=== PATIENT | female | born 1940 | race Caucasian/White ===

== ENCOUNTER 2017-09-19 23:47 | Inpatient (IN) | payer MEDICARE, OTHER ==
[2017-09-20] MEDS: SOD CHLORIDE 0.9% 1,000 ML IV (00:39)
[2017-09-20] MEDS: ONDANSETRON 4 MG INJ IV ×2 (00:39→04:22)
[2017-09-20] MEDS: FAMOTIDINE 20 MG INJ IV (00:39)
[2017-09-20 00:45] LABS: ADD MAN DIFF? NO
[2017-09-20 00:51] LABS: WHITE BLOOD COUNT 8.6 10^3/ul (4.8-10.8)
[2017-09-20 00:52] LABS: BASOPHILS % 0.1 % (0.0-2.0); EOSINOPHILS % 0.1 % (0.0-7.0); HEMATOCRIT 29.2 % (37.0-47.0); HEMOGLOBIN 8.9 g/dl (12.0-16.0); LYMPHOCYTES # 1.1 10^3/ul (0.8-2.9); LYMPHOCYTES % 13.2 % (15.0-51.0); MEAN CORPUSCULAR HEMOGLOBIN 23.5 pg (29.0-33.0); MEAN CORPUSCULAR HGB CONC 30.5 g/dl (32.0-37.0); MEAN CORPUSCULAR VOLUME 77.2 fl (82.0-101.0); MEAN PLATELET VOLUME 9.9 fl (7.4-10.4); MONOCYTE # 0.6 10^3/ul (0.3-0.9); MONOCYTES % 6.9 % (0.0-11.0); NEUTROPHIL # 6.8 10^3/ul (1.6-7.5); NEUTROPHILS % 79.2 % (39.0-77.0); PLATELET COUNT 361 10^3/UL (140-415); RED BLOOD COUNT 3.78 10^6/ul (4.20-5.40); RED CELL DISTRIBUTION WIDTH 15.9 % (11.5-14.5)
[2017-09-20 01:08] LABS: ALANINE AMINOTRANSFERASE 35 IU/L (13-69); ALBUMIN 3.4 g/dl (3.3-4.9); ALBUMIN/GLOBULIN RATIO 1.13; ALKALINE PHOSPHATASE 41 IU/L (42-121); ANION GAP 16 (8-16); ASPARTATE AMINO TRANSFERASE 21 IU/L (15-46); BILIRUBIN,INDIRECT 0.3 mg/dl (0-1.1); BILIRUBIN,TOTAL 0.3 mg/dl (0.2-1.3); BLOOD UREA NITROGEN 36 mg/dl (7-20); CALCIUM 9.1 mg/dl (8.4-10.2); CARBON DIOXIDE 19 mmol/L (21-31); CHLORIDE 107 mmol/L (97-110); CREATININE 0.96 mg/dl (0.44-1.00); GLUCOSE 140 mg/dl (70-220); POTASSIUM 4.2 mmol/L (3.5-5.1); SODIUM 138 mmol/L (135-144); TOTAL PROTEIN 6.4 g/dl (6.1-8.1)
[2017-09-20 01:12] LABS: LACTIC ACID 1.2 mmol/L (0.5-2.0)
[2017-09-20 01:19] LABS: TROPONIN-I 0.013 ng/ml (0.00-0.12)
[2017-09-20 01:35] LABS: INR 0.99; PROTIME 13.2 Sec (11.9-14.9)
[2017-09-20 01:36] LABS: PARTIAL THROMBOPLASTIN TIME 30.2 Sec (25.0-35.0)
[2017-09-20 01:57] LABS: ADD UMIC YES; UR ASCORBIC ACID 40 mg/dL (NEGATIVE); UR BILIRUBIN (Dip) NEGATIVE (NEGATIVE); UR BLOOD (Dip) NEGATIVE (NEGATIVE); UR CLARITY CLEAR (CLEAR); UR COLOR YELLOW (YELLOW); UR GLUCOSE (Dip) NEGATIVE (NEGATIVE); UR KETONES (Dip) NEGATIVE (NEGATIVE); UR LEUKOCYTE ESTERASE (Dip) TRACE Leu/ul (NEGATIVE); UR NITRITE (Dip) NEGATIVE (NEGATIVE); UR RBC 4 /HPF (0-5); UR SPECIFIC GRAVITY (Dip) 1.032 (1.003-1.030); UR SQUAMOUS EPITHELIAL CELL FEW /HPF (FEW); UR TOTAL PROTEIN (Dip) NEGATIVE (NEGATIVE); UR UROBILINOGEN (Dip) NEGATIVE (NEGATIVE); UR WBC 1 /HPF (0-5)
[2017-09-20] MEDS: HALOPERIDOL 5 MG INJ IV (02:31)
[2017-09-20] MEDS: morphine 4 MG/ML VIAL IV (02:32)
[2017-09-20] MEDS ORDERED: ACETAMINOPHEN 325 MG TAB PO (04:30)
[2017-09-20 04:55] LABS: LACTIC ACID 0.9 mmol/L (0.5-2.0)
[2017-09-20] MEDS ORDERED: NACL 0.9% 3 ML SYG IV (06:30)
[2017-09-20] MEDS ORDERED: ALBUTEROL/IPRATROPIUM (NEB) 3 ML AMP HHN (06:30)
[2017-09-20] MEDS ORDERED: ONDANSETRON 4 MG INJ IV ×2 (06:30→14:30)
[2017-09-20] MEDS: DEXTROSE 5%-0.45% NACL 1,000 ML IV ×2 (07:01→16:11)
[2017-09-20] MEDS: LORAZEPAM 2 MG INJ IV ×3 (08:12→19:58)
[2017-09-20 08:14] LABS: WHITE BLOOD COUNT 5.4 10^3/ul (4.8-10.8)
[2017-09-20 08:14] LABS: ADD MAN DIFF? NO; BASOPHILS % 0.2 % (0.0-2.0); EOSINOPHILS % 0.4 % (0.0-7.0); HEMATOCRIT 27.9 % (37.0-47.0); HEMOGLOBIN 8.1 g/dl (12.0-16.0); LYMPHOCYTES # 1.5 10^3/ul (0.8-2.9); MEAN CORPUSCULAR HEMOGLOBIN 23.1 pg (29.0-33.0); MEAN CORPUSCULAR VOLUME 79.7 fl (82.0-101.0); MEAN PLATELET VOLUME 9.7 fl (7.4-10.4); MONOCYTE # 0.6 10^3/ul (0.3-0.9); NEUTROPHIL # 3.3 10^3/ul (1.6-7.5); PLATELET COUNT 279 10^3/UL (140-415); RED CELL DISTRIBUTION WIDTH 16.2 % (11.5-14.5)
[2017-09-20 08:38] LABS: IRON 21 ug/dl (35-150)
[2017-09-20 08:40] LABS: ALANINE AMINOTRANSFERASE 38 IU/L (13-69); ALBUMIN 2.9 g/dl (3.3-4.9); ALKALINE PHOSPHATASE 33 IU/L (42-121); ANION GAP 12 (8-16); ASPARTATE AMINO TRANSFERASE 24 IU/L (15-46); BILIRUBIN,INDIRECT 0.1 mg/dl (0-1.1); BILIRUBIN,TOTAL 0.1 mg/dl (0.2-1.3); BLOOD UREA NITROGEN 27 mg/dl (7-20); CALCIUM 8.3 mg/dl (8.4-10.2); CARBON DIOXIDE 20 mmol/L (21-31); CHLORIDE 111 mmol/L (97-110); CREATININE 0.82 mg/dl (0.44-1.00); GLUCOSE 120 mg/dl (70-220); PHOSPHORUS 3.4 mg/dl (2.5-4.9); POTASSIUM 4.4 mmol/L (3.5-5.1); SODIUM 139 mmol/L (135-144); TOTAL PROTEIN 5.8 g/dl (6.1-8.1)
[2017-09-20 08:47] LABS: % IRON SATURATION 6 % SAT (22-52); TOTAL IRON BINDING CAPACITY 357 ug/dl (241-421)
[2017-09-20 09:14] LABS: FERRITIN 16.8 ng/ml (11.1-264.0)
[2017-09-20] MEDS: PANTOPRAZOLE IV 80 MG in SOD CHLORIDE 0.9% 100 ML IV ×2 (09:49→22:06)
[2017-09-20 13:07] LABS: HEMATOCRIT 26.2 % (37.0-47.0); HEMOGLOBIN 8.1 g/dl (12.0-16.0)
[2017-09-20] MEDS ORDERED: LIDOCAINE 2% (SDV) 5 ML INJ (14:14)
[2017-09-20] MEDS ORDERED: PROPOFOL 20 ML (14:14)
[2017-09-20] MEDS ORDERED: hydrALAzine 20 MG INJ IV (14:30)
[2017-09-20] MEDS ORDERED: LABETALOL HCL 20MG INJ IV (14:30)
[2017-09-20] MEDS ORDERED: HYDROmorphONE (0.2 MG/ML) 10ML SYG IV (14:30)
[2017-09-20 19:03] LABS: HEMATOCRIT 26.6 % (37.0-47.0); HEMOGLOBIN 7.8 g/dl (12.0-16.0)
[2017-09-20] MEDS ORDERED: PERPHENAZINE 4 MG TAB PO ×2 (21:00)
[2017-09-20] MEDS: PERPHENAZINE 2 MG TAB PO (22:05)
[2017-09-20] MEDS: GABAPENTIN 300 MG CAP PO (22:06)
[2017-09-21] MEDS: PANTOPRAZOLE IV 80 MG in SOD CHLORIDE 0.9% 100 ML IV ×2 (05:00→11:53)
[2017-09-21] MEDS ORDERED: PANTOPRAZOLE 40 MG INJ IV (06:00)
[2017-09-21] MEDS: morphine 2 MG INJ IV ×2 (06:25→17:11)
[2017-09-21] MEDS: GABAPENTIN 300 MG CAP PO ×3 (08:59→20:38)
[2017-09-21] MEDS: PERPHENAZINE 2 MG TAB PO ×3 (08:59→20:38)
[2017-09-21 09:05] LABS: ADD MAN DIFF? NO
[2017-09-21 09:08] LABS: WHITE BLOOD COUNT 5.4 10^3/ul (4.8-10.8)
[2017-09-21 09:08] LABS: BASOPHILS % 0.2 % (0.0-2.0); EOSINOPHILS # 0.1 10^3/ul (0.0-0.5); EOSINOPHILS % 1.1 % (0.0-7.0); HEMATOCRIT 24.2 % (37.0-47.0); HEMOGLOBIN 7.3 g/dl (12.0-16.0); LYMPHOCYTES # 1.7 10^3/ul (0.8-2.9); LYMPHOCYTES % 31.1 % (15.0-51.0); MEAN CORPUSCULAR HEMOGLOBIN 23.3 pg (29.0-33.0); MEAN CORPUSCULAR HGB CONC 30.2 g/dl (32.0-37.0); MEAN CORPUSCULAR VOLUME 77.3 fl (82.0-101.0); MEAN PLATELET VOLUME 9.4 fl (7.4-10.4); MONOCYTE # 0.5 10^3/ul (0.3-0.9); MONOCYTES % 9.1 % (0.0-11.0); NEUTROPHIL # 3.2 10^3/ul (1.6-7.5); NEUTROPHILS % 58.3 % (39.0-77.0); PLATELET COUNT 277 10^3/UL (140-415); RED BLOOD COUNT 3.13 10^6/ul (4.20-5.40); RED CELL DISTRIBUTION WIDTH 16.4 % (11.5-14.5)
[2017-09-21 09:33] LABS: ANION GAP 11 (8-16); BLOOD UREA NITROGEN 14 mg/dl (7-20); CALCIUM 9.2 mg/dl (8.4-10.2); CARBON DIOXIDE 23 mmol/L (21-31); CHLORIDE 110 mmol/L (97-110); CREATININE 0.84 mg/dl (0.44-1.00); GLUCOSE 94 mg/dl (70-220); PHOSPHORUS 3.3 mg/dl (2.5-4.9); POTASSIUM 4.1 mmol/L (3.5-5.1); SODIUM 140 mmol/L (135-144)
[2017-09-21] MEDS: LORAZEPAM 2 MG INJ IV (18:09)
[2017-09-21] MEDS: SOD CHLORIDE 0.9% 1,000 ML IV (20:04)
[2017-09-22] MEDS: PANTOPRAZOLE IV 80 MG in SOD CHLORIDE 0.9% 100 ML IV ×3 (02:05→21:41)
[2017-09-22] MEDS: SOD CHLORIDE 0.9% 1,000 ML IV ×2 (05:00→15:15)
[2017-09-22 07:21] LABS: ADD MAN DIFF? NO
[2017-09-22 07:25] LABS: BASOPHILS % 0.2 % (0.0-2.0); EOSINOPHILS # 0.2 10^3/ul (0.0-0.5); EOSINOPHILS % 3.4 % (0.0-7.0); HEMATOCRIT 27.2 % (37.0-47.0); LYMPHOCYTES # 1.9 10^3/ul (0.8-2.9); LYMPHOCYTES % 30.9 % (15.0-51.0); MEAN CORPUSCULAR HEMOGLOBIN 23.2 pg (29.0-33.0); MEAN CORPUSCULAR HGB CONC 29.4 g/dl (32.0-37.0); MEAN CORPUSCULAR VOLUME 78.8 fl (82.0-101.0); MEAN PLATELET VOLUME 9.4 fl (7.4-10.4); MONOCYTE # 0.5 10^3/ul (0.3-0.9); MONOCYTES % 8.5 % (0.0-11.0); NEUTROPHIL # 3.5 10^3/ul (1.6-7.5); NEUTROPHILS % 56.7 % (39.0-77.0); PLATELET COUNT 288 10^3/UL (140-415); RED BLOOD COUNT 3.45 10^6/ul (4.20-5.40); RED CELL DISTRIBUTION WIDTH 16.2 % (11.5-14.5)
[2017-09-22 07:25] LABS: WHITE BLOOD COUNT 6.2 10^3/ul (4.8-10.8)
[2017-09-22] MEDS: PERPHENAZINE 2 MG TAB PO ×3 (08:19→21:41)
[2017-09-22] MEDS: GABAPENTIN 300 MG CAP PO ×3 (08:19→21:42)
[2017-09-22 10:16] LABS: ALANINE AMINOTRANSFERASE 35 IU/L (13-69); ALBUMIN 3.2 g/dl (3.3-4.9); ALBUMIN/GLOBULIN RATIO 1.14; ALKALINE PHOSPHATASE 36 IU/L (42-121); ANION GAP 10 (8-16); ASPARTATE AMINO TRANSFERASE 21 IU/L (15-46); BILIRUBIN,INDIRECT 0.1 mg/dl (0-1.1); BILIRUBIN,TOTAL 0.1 mg/dl (0.2-1.3); BLOOD UREA NITROGEN 12 mg/dl (7-20); CALCIUM 9.3 mg/dl (8.4-10.2); CARBON DIOXIDE 25 mmol/L (21-31); CHLORIDE 108 mmol/L (97-110); CREATININE 0.81 mg/dl (0.44-1.00); GLUCOSE 105 mg/dl (70-220); MAGNESIUM 1.9 mg/dl (1.7-2.5); PHOSPHORUS 3.7 mg/dl (2.5-4.9); POTASSIUM 4.1 mmol/L (3.5-5.1); SODIUM 139 mmol/L (135-144)
[2017-09-22] MEDS: LORAZEPAM 2 MG INJ IV (11:49)
[2017-09-22] MEDS: DOCUSATE SODIUM 100 MG CAP PO ×2 (12:38→21:41)
[2017-09-22] MEDS: BISACODYL (EC) 5 MG TAB PO (12:38)
[2017-09-22] MEDS: HALOPERIDOL 5 MG INJ IM ×3 (13:43→22:00)
[2017-09-22] MEDS: NA PHOSPHATE/BIPHOS 133 ML ENEMA PR (14:54)
[2017-09-22] MEDS: LORAZEPAM 1 MG TAB PO (16:11)
[2017-09-23] MEDS: SOD CHLORIDE 0.9% 1,000 ML IV ×3 (00:44→21:00)
[2017-09-23] MEDS ORDERED: VANCOMYCIN IV PER PHARMACY XX (03:00)
[2017-09-23] MEDS: VANCOMYCIN 1.5 GM in DEXTROSE 5% 500 ML IVPB (05:53)
[2017-09-23] MEDS: HALOPERIDOL 5 MG INJ IM ×4 (06:42→21:15)
[2017-09-23] MEDS: PANTOPRAZOLE IV 80 MG in SOD CHLORIDE 0.9% 100 ML IV ×3 (07:00→18:18)
[2017-09-23] MEDS: DOCUSATE SODIUM 100 MG CAP PO ×2 (08:46→21:14)
[2017-09-23] MEDS: PERPHENAZINE 2 MG TAB PO ×3 (08:47→21:14)
[2017-09-23] MEDS: GABAPENTIN 300 MG CAP PO ×3 (08:47→21:14)
[2017-09-23] MEDS: LORAZEPAM 1 MG TAB PO (10:40)
[2017-09-23 12:16] LABS: ADD MAN DIFF? NO
[2017-09-23 12:20] LABS: WHITE BLOOD COUNT 7.2 10^3/ul (4.8-10.8)
[2017-09-23 12:20] LABS: BASOPHILS % 0.1 % (0.0-2.0); EOSINOPHILS # 0.1 10^3/ul (0.0-0.5); EOSINOPHILS % 1.7 % (0.0-7.0); HEMATOCRIT 25.1 % (37.0-47.0); HEMOGLOBIN 7.5 g/dl (12.0-16.0); LYMPHOCYTES # 1.7 10^3/ul (0.8-2.9); LYMPHOCYTES % 24.2 % (15.0-51.0); MEAN CORPUSCULAR HEMOGLOBIN 23.2 pg (29.0-33.0); MEAN CORPUSCULAR HGB CONC 29.9 g/dl (32.0-37.0); MEAN CORPUSCULAR VOLUME 77.7 fl (82.0-101.0); MEAN PLATELET VOLUME 9.4 fl (7.4-10.4); MONOCYTE # 0.7 10^3/ul (0.3-0.9); MONOCYTES % 9.9 % (0.0-11.0); NEUTROPHIL # 4.6 10^3/ul (1.6-7.5); NEUTROPHILS % 63.8 % (39.0-77.0); PLATELET COUNT 290 10^3/UL (140-415); RED BLOOD COUNT 3.23 10^6/ul (4.20-5.40); RED CELL DISTRIBUTION WIDTH 16.1 % (11.5-14.5)
[2017-09-23 12:27] LABS: ALANINE AMINOTRANSFERASE 35 IU/L (13-69); ALBUMIN 3.1 g/dl (3.3-4.9); ALBUMIN/GLOBULIN RATIO 1.29; ALKALINE PHOSPHATASE 38 IU/L (42-121); ANION GAP 12 (8-16); ASPARTATE AMINO TRANSFERASE 28 IU/L (15-46); BILIRUBIN,INDIRECT 0.1 mg/dl (0-1.1); BILIRUBIN,TOTAL 0.1 mg/dl (0.2-1.3); BLOOD UREA NITROGEN 9 mg/dl (7-20); CALCIUM 8.6 mg/dl (8.4-10.2); CARBON DIOXIDE 24 mmol/L (21-31); CHLORIDE 109 mmol/L (97-110); CREATININE 0.81 mg/dl (0.44-1.00); GLUCOSE 133 mg/dl (70-220); MAGNESIUM 1.8 mg/dl (1.7-2.5); PHOSPHORUS 4.2 mg/dl (2.5-4.9); POTASSIUM 3.3 mmol/L (3.5-5.1); SODIUM 142 mmol/L (135-144); TOTAL PROTEIN 5.5 g/dl (6.1-8.1)
[2017-09-23] MEDS: LIDOCAINE 1% (MPF) 5 ML VIAL SC (17:35)
[2017-09-23] MEDS: VANCOMYCIN 500MG/NS (PMX) 100 ML IVPB (18:21)
[2017-09-23] MEDS: MAGNESIUM SULFATE 1 GM/D5W 100 ML IVPB (20:00)
[2017-09-23] MEDS: POTASSIUM CHLORIDE 50 ML IVPB ×4 (21:00→23:46)
[2017-09-23] MEDS ORDERED: VANCOMYCIN 500MG/NS (PMX) 100 ML IVPB (22:00)
[2017-09-24] MEDS ORDERED: VANCOMYCIN 1 GM in SODIUM CHLORIDE 0.45 % 250 ML IVPB (03:00)
[2017-09-24] MEDS: PANTOPRAZOLE IV 80 MG in SOD CHLORIDE 0.9% 100 ML IV ×3 (05:16→23:00)
[2017-09-24] MEDS: VANCOMYCIN 500MG/NS (PMX) 100 ML IVPB (05:16)
[2017-09-24] MEDS: HALOPERIDOL 5 MG INJ IM ×3 (05:16→22:05)
[2017-09-24] MEDS: SOD CHLORIDE 0.9% 1,000 ML IV (05:16)
[2017-09-24] MEDS: LORAZEPAM 1 MG TAB PO ×2 (08:53→22:36)
[2017-09-24] MEDS: DOCUSATE SODIUM 100 MG CAP PO ×2 (08:53→22:04)
[2017-09-24] MEDS: GABAPENTIN 300 MG CAP PO ×3 (08:53→22:04)
[2017-09-24] MEDS: PERPHENAZINE 2 MG TAB PO ×3 (08:53→22:04)
[2017-09-24] MEDS: SOD CHLORIDE 0.9% 250 ML IV* (11:54)
[2017-09-24] MEDS: POTASSIUM CHLORIDE (SR) 20 MEQ TAB PO (13:09)
[2017-09-24] MEDS: SOD CHLORIDE 0.45% 1,000 ML IV (13:09)
[2017-09-24 14:28] LABS: IMMEDIATE SPIN CROSSMATCH 1 2
[2017-09-24 17:53] LABS: VANCOMYCIN,TROUGH 6.9 ug/ml (10.0-20.0)
[2017-09-24] MEDS ORDERED: LIDOCAINE 1% (MPF) 5 ML VIAL SC (21:00)
[2017-09-24] MEDS: VANCOMYCIN 1 GM in SODIUM CHLORIDE 0.45 % 250 ML IVPB (22:05)
[2017-09-25] MEDS: SOD CHLORIDE 0.45% 1,000 ML IV ×3 (01:20→21:37)
[2017-09-25 06:21] LABS: ADD MAN DIFF? NO
[2017-09-25 06:37] LABS: WHITE BLOOD COUNT 8.4 10^3/ul (4.8-10.8)
[2017-09-25 06:37] LABS: BASOPHILS % 0.5 % (0.0-2.0); EOSINOPHILS # 0.3 10^3/ul (0.0-0.5); EOSINOPHILS % 3.1 % (0.0-7.0); HEMOGLOBIN 11.6 g/dl (12.0-16.0); LYMPHOCYTES # 2.4 10^3/ul (0.8-2.9); LYMPHOCYTES % 27.8 % (15.0-51.0); MEAN CORPUSCULAR HEMOGLOBIN 25.8 pg (29.0-33.0); MEAN CORPUSCULAR HGB CONC 32.2 g/dl (32.0-37.0); MEAN CORPUSCULAR VOLUME 80.2 fl (82.0-101.0); MEAN PLATELET VOLUME 10.3 fl (7.4-10.4); MONOCYTE # 0.9 10^3/ul (0.3-0.9); NEUTROPHIL # 4.8 10^3/ul (1.6-7.5); NEUTROPHILS % 57.2 % (39.0-77.0); PLATELET COUNT 232 10^3/UL (140-415); RED BLOOD COUNT 4.49 10^6/ul (4.20-5.40); RED CELL DISTRIBUTION WIDTH 15.4 % (11.5-14.5)
[2017-09-25] MEDS: HALOPERIDOL 5 MG INJ IM ×3 (06:42→21:40)
[2017-09-25 06:58] LABS: ANION GAP 14 (8-16); BLOOD UREA NITROGEN 4 mg/dl (7-20); CALCIUM 9.5 mg/dl (8.4-10.2); CARBON DIOXIDE 25 mmol/L (21-31); CHLORIDE 109 mmol/L (97-110); CREATININE 0.76 mg/dl (0.44-1.00); GLUCOSE 92 mg/dl (70-220); SODIUM 144 mmol/L (135-144)
[2017-09-25] MEDS: LIDOCAINE 1% (MPF) 5 ML VIAL SC (08:00)
[2017-09-25] MEDS: VANCOMYCIN 1 GM in SODIUM CHLORIDE 0.45 % 250 ML IVPB ×2 (09:24→21:50)
[2017-09-25] MEDS: DOCUSATE SODIUM 100 MG CAP PO ×2 (09:25→21:39)
[2017-09-25] MEDS: GABAPENTIN 300 MG CAP PO ×3 (09:25→21:39)
[2017-09-25] MEDS: PERPHENAZINE 2 MG TAB PO ×3 (09:26→21:39)
[2017-09-25] MEDS: PANTOPRAZOLE IV 80 MG in SOD CHLORIDE 0.9% 100 ML IV (14:31)
[2017-09-25] MEDS: ALTEPLASE (CATHFLO) 2 MG INJ CATHETER (15:47)
[2017-09-26] MEDS: PANTOPRAZOLE (EC) 40 MG TAB PO ×2 (05:44→18:33)
[2017-09-26] MEDS: HALOPERIDOL 5 MG INJ IM ×3 (05:44→21:53)
[2017-09-26 06:19] LABS: ADD MAN DIFF? NO
[2017-09-26 07:13] LABS: ANION GAP 12 (8-16); BLOOD UREA NITROGEN 6 mg/dl (7-20); CALCIUM 9.2 mg/dl (8.4-10.2); CARBON DIOXIDE 28 mmol/L (21-31); CHLORIDE 107 mmol/L (97-110); CREATININE 0.77 mg/dl (0.44-1.00); GLUCOSE 111 mg/dl (70-220); POTASSIUM 3.7 mmol/L (3.5-5.1); SODIUM 143 mmol/L (135-144)
[2017-09-26 07:38] LABS: WHITE BLOOD COUNT 8.5 10^3/ul (4.8-10.8)
[2017-09-26 07:38] LABS: BASOPHILS % 0.5 % (0.0-2.0); EOSINOPHILS # 0.3 10^3/ul (0.0-0.5); EOSINOPHILS % 3.3 % (0.0-7.0); HEMATOCRIT 33.8 % (37.0-47.0); HEMOGLOBIN 10.7 g/dl (12.0-16.0); LYMPHOCYTES # 1.9 10^3/ul (0.8-2.9); LYMPHOCYTES % 22.4 % (15.0-51.0); MEAN CORPUSCULAR HEMOGLOBIN 25.4 pg (29.0-33.0); MEAN CORPUSCULAR HGB CONC 31.7 g/dl (32.0-37.0); MEAN CORPUSCULAR VOLUME 80.3 fl (82.0-101.0); MONOCYTE # 0.8 10^3/ul (0.3-0.9); MONOCYTES % 9.9 % (0.0-11.0); NEUTROPHIL # 5.4 10^3/ul (1.6-7.5); NEUTROPHILS % 63.4 % (39.0-77.0); RED BLOOD COUNT 4.21 10^6/ul (4.20-5.40)
[2017-09-26 07:57] LABS: PLATELET COUNT 120 10^3/UL (140-415)
[2017-09-26] MEDS: DOCUSATE SODIUM 100 MG CAP PO ×2 (09:55→21:51)
[2017-09-26] MEDS: GABAPENTIN 300 MG CAP PO ×3 (09:55→21:51)
[2017-09-26] MEDS: PERPHENAZINE 2 MG TAB PO ×3 (09:56→21:48)
[2017-09-26] MEDS: BISACODYL (EC) 5 MG TAB PO (10:01)
[2017-09-26] MEDS: VANCOMYCIN 1 GM in SODIUM CHLORIDE 0.45 % 250 ML IVPB (10:06)
[2017-09-26] MEDS: ARTIFICIAL TEARS 15 ML OPH BOTH EYES ×2 (18:32→21:46)
[2017-09-26] MEDS: ALBUMIN HUMAN 25% 100 ML IV (18:32)
[2017-09-26] MEDS: SOD CHLORIDE 0.45% 1,000 ML IV (18:33)
[2017-09-26] MEDS: FUROSEMIDE 20 MG INJ IV (21:44)
[2017-09-26] MEDS: VANCOMYCIN 750 MG in DEXTROSE 5% 150 ML IVPB (21:45)
[2017-09-26] MEDS: FAMOTIDINE 20 MG TAB PO (21:51)
[2017-09-27 01:07] LABS: ADD UMIC YES; UR ASCORBIC ACID NEGATIVE (NEGATIVE); UR BACTERIA FEW /HPF (NONE SEEN); UR BILIRUBIN (Dip) NEGATIVE (NEGATIVE); UR BLOOD (Dip) NEGATIVE (NEGATIVE); UR CLARITY CLEAR (CLEAR); UR COLOR COLORLESS (YELLOW); UR GLUCOSE (Dip) NEGATIVE (NEGATIVE); UR KETONES (Dip) NEGATIVE (NEGATIVE); UR LEUKOCYTE ESTERASE (Dip) 3+ Leu/ul (NEGATIVE); UR NITRITE (Dip) NEGATIVE (NEGATIVE); UR RBC 2 /HPF (0-5); UR SPECIFIC GRAVITY (Dip) 1.004 (1.003-1.030); UR TOTAL PROTEIN (Dip) NEGATIVE (NEGATIVE); UR UROBILINOGEN (Dip) NEGATIVE (NEGATIVE); UR WBC 31 /HPF (0-5)
[2017-09-27] MEDS: CEFTRIAXONE 1 GM/50 ML (PMX) 50 ML IVPB (02:51)
[2017-09-27 06:19] LABS: ADD MAN DIFF? NO
[2017-09-27] MEDS: HALOPERIDOL 5 MG INJ IM ×2 (06:24→13:04)
[2017-09-27] MEDS: PANTOPRAZOLE (EC) 40 MG TAB PO (06:24)
[2017-09-27 06:37] LABS: WHITE BLOOD COUNT 7.8 10^3/ul (4.8-10.8)
[2017-09-27 06:37] LABS: BASOPHIL # 0.1 10^3/ul (0.0-0.1); BASOPHILS % 0.6 % (0.0-2.0); EOSINOPHILS # 0.3 10^3/ul (0.0-0.5); HEMATOCRIT 34.5 % (37.0-47.0); HEMOGLOBIN 10.7 g/dl (12.0-16.0); LYMPHOCYTES # 2.3 10^3/ul (0.8-2.9); LYMPHOCYTES % 29.3 % (15.0-51.0); MEAN CORPUSCULAR HEMOGLOBIN 25.1 pg (29.0-33.0); MONOCYTES % 12.6 % (0.0-11.0); NEUTROPHIL # 4.1 10^3/ul (1.6-7.5); NEUTROPHILS % 53.1 % (39.0-77.0); PLATELET COUNT 116 10^3/UL (140-415); RED BLOOD COUNT 4.26 10^6/ul (4.20-5.40); RED CELL DISTRIBUTION WIDTH 16.6 % (11.5-14.5)
[2017-09-27] MEDS: NA PHOSPHATE/BIPHOS 133 ML ENEMA PR (06:54)
[2017-09-27 06:57] LABS: POSITIVE DIFF @See below
[2017-09-27 07:42] LABS: ANION GAP 15 (8-16); BLOOD UREA NITROGEN 7 mg/dl (7-20); CALCIUM 9.5 mg/dl (8.4-10.2); CARBON DIOXIDE 28 mmol/L (21-31); CHLORIDE 106 mmol/L (97-110); CREATININE 0.86 mg/dl (0.44-1.00); GLUCOSE 102 mg/dl (70-220); POTASSIUM 3.2 mmol/L (3.5-5.1); SODIUM 146 mmol/L (135-144)
[2017-09-27] MEDS: DOCUSATE SODIUM 100 MG CAP PO (09:01)
[2017-09-27] MEDS: GABAPENTIN 300 MG CAP PO ×2 (09:01→13:03)
[2017-09-27] MEDS: FAMOTIDINE 20 MG TAB PO (09:01)
[2017-09-27] MEDS: PERPHENAZINE 2 MG TAB PO ×2 (09:01→13:03)
[2017-09-27] MEDS: ARTIFICIAL TEARS 15 ML OPH BOTH EYES ×2 (09:02→13:04)
[2017-09-27] MEDS: VANCOMYCIN 750 MG in DEXTROSE 5% 150 ML IVPB (10:41)
[2017-09-28] MEDS ORDERED: LEVOFLOXACIN 500 MG TAB PO (06:00)
[2017-09-28] MEDS ORDERED: PANTOPRAZOLE (EC) 40 MG TAB PO (09:00)
== END 2017-09-27 16:10 | DRG 378 ==
LOC: E/R 23:47 → MS2 09-24 13:14 → TEL 09-20 04:11
PROVIDERS: Specialist
PROC: 0DB68ZX Excision of Stomach, Via Natural or Artificial Opening Endoscopic, Diagnostic (ICD-10-PCS; principal; 2017-09-20 14:15)
PROC: 0W3P8ZZ Control Bleeding in Gastrointestinal Tract, Via Natural or Artificial Opening Endoscopic (ICD-10-PCS; 2017-09-20 14:15)
PROC: 02HV33Z Insertion of Infusion Device into Superior Vena Cava, Percutaneous Approach (ICD-10-PCS; 2017-09-20 14:15)
PROC: 30233N1 Transfusion of Nonautologous Red Blood Cells into Peripheral Vein, Percutaneous Approach (ICD-10-PCS; 2017-09-20 14:15)
DX: K25.4 Chronic or unspecified gastric ulcer with hemorrhage (principal); R78.81 Bacteremia; E86.0 Dehydration; F03.90 Unspecified dementia, unspecified severity, without behavioral disturbance, psychotic disturbance, mood disturbance, and anxiety; F05 Delirium due to known physiological condition; D62 Acute posthemorrhagic anemia; K44.9 Diaphragmatic hernia without obstruction or gangrene; K21.9 Gastro-esophageal reflux disease without esophagitis; E78.5 Hyperlipidemia, unspecified; F41.9 Anxiety disorder, unspecified
CPT/HCPCS: 36415; 36430; 36569; 71010; 74000; 76937; 80048; 80053; 80202; 81001; 82728; 83540; 83605; 83735; 84100; 84443; 84484; 85014; 85018; 85025; 85610; 85730; 86850; 86900; 86901; 86920; 87040; 87086; 87400; 88305; 88312; 93005; 93971; 96374; 96375; 96376; 97162; 99285-25; J1940

== ENCOUNTER 2018-02-06 23:53 | Inpatient (IN) | payer MEDICARE, OTHER ==
[2018-02-07] MEDS: LORAZEPAM 2 MG INJ IV ×5 (00:16→21:23)
[2018-02-07] MEDS: LEVETIRACETAM 1000 MG (PMX) 100 ML IVPB (00:20)
[2018-02-07] MEDS: SOD CHLORIDE 0.9% 1,000 ML IV (00:25)
[2018-02-07 00:38] LABS: ADD MAN DIFF? NO
[2018-02-07 00:44] LABS: BASOPHIL # 0.1 10^3/ul (0.0-0.1); BASOPHILS % 0.7 % (0.0-2.0); EOSINOPHILS # 0.2 10^3/ul (0.0-0.5); EOSINOPHILS % 1.1 % (0.0-7.0); HEMATOCRIT 42.9 % (37.0-47.0); HEMOGLOBIN 13.2 g/dl (12.0-16.0); LYMPHOCYTES # 3.6 10^3/ul (0.8-2.9); LYMPHOCYTES % 23.7 % (15.0-51.0); MEAN CORPUSCULAR HEMOGLOBIN 27.8 pg (29.0-33.0); MEAN CORPUSCULAR HGB CONC 30.8 g/dl (32.0-37.0); MEAN CORPUSCULAR VOLUME 90.5 fl (82.0-101.0); MEAN PLATELET VOLUME 9.6 fl (7.4-10.4); MONOCYTE # 0.7 10^3/ul (0.3-0.9); MONOCYTES % 4.7 % (0.0-11.0); NEUTROPHIL # 10.3 10^3/ul (1.6-7.5); NEUTROPHILS % 68.5 % (39.0-77.0); PLATELET COUNT 368 10^3/UL (140-415); RED BLOOD COUNT 4.74 10^6/ul (4.20-5.40); RED CELL DISTRIBUTION WIDTH 14.3 % (11.5-14.5)
[2018-02-07 00:44] LABS: WHITE BLOOD COUNT 15.1 10^3/ul (4.8-10.8)
[2018-02-07 01:01] LABS: INR 1.04; PROTIME 13.7 Sec (11.9-14.9); PT RATIO 1.1
[2018-02-07 01:02] LABS: ALANINE AMINOTRANSFERASE 20 IU/L (13-69); ALBUMIN 3.8 g/dl (3.3-4.9); ALBUMIN/GLOBULIN RATIO 1.46; ALKALINE PHOSPHATASE 53 IU/L (42-121); ANION GAP 24 (8-16); ASPARTATE AMINO TRANSFERASE 22 IU/L (15-46); BILIRUBIN,INDIRECT 0.1 mg/dl (0-1.1); BILIRUBIN,TOTAL 0.1 mg/dl (0.2-1.3); BLOOD UREA NITROGEN 12 mg/dl (7-20); CALCIUM 9.3 mg/dl (8.4-10.2); CARBON DIOXIDE 16 mmol/L (21-31); CHLORIDE 107 mmol/L (97-110); GLUCOSE 267 mg/dl (70-220); PARTIAL THROMBOPLASTIN TIME 25.8 Sec (25.0-35.0); POTASSIUM 3.8 mmol/L (3.5-5.1); SODIUM 143 mmol/L (135-144); TOTAL PROTEIN 6.4 g/dl (6.1-8.1)
[2018-02-07 01:03] LABS: LACTIC ACID 11.2 mmol/L (0.5-2.0)
[2018-02-07 01:13] LABS: TROPONIN-I 0.026 ng/ml (0.00-0.12)
[2018-02-07 02:04] LABS: URINE PH (Dip) POC 6.5 (5.0-8.5)
[2018-02-07 02:04] LABS: URINE BLOOD (Dip) POC Trace-intact (NEGATIVE); URINE GLUCOSE (Dip) POC Negative (NEGATIVE); URINE KETONES (Dip) POC Trace (NEGATIVE); URINE LEUKOCYTE EST (Dip) POC Negative (NEGATIVE); URINE NITRITE (Dip) POC Negative (NEGATIVE); URINE TOTAL PROTEIN POC 2+ (NEGATIVE)
[2018-02-07 03:33] LABS: ADD UMIC YES; UR ASCORBIC ACID 20 mg/dL (NEGATIVE); UR BILIRUBIN (Dip) NEGATIVE (NEGATIVE); UR BLOOD (Dip) NEGATIVE (NEGATIVE); UR CLARITY CLEAR (CLEAR); UR COLOR YELLOW (YELLOW); UR GLUCOSE (Dip) NEGATIVE (NEGATIVE); UR KETONES (Dip) TRACE mg/dL (NEGATIVE); UR LEUKOCYTE ESTERASE (Dip) NEGATIVE Leu/ul (NEGATIVE); UR NITRITE (Dip) NEGATIVE (NEGATIVE); UR RBC 0 /HPF (0-5); UR SPECIFIC GRAVITY (Dip) 1.013 (1.003-1.030); UR TOTAL PROTEIN (Dip) 1+ mg/dl (NEGATIVE); UR UROBILINOGEN (Dip) NEGATIVE (NEGATIVE); UR WBC 1 /HPF (0-5)
[2018-02-07 03:49] LABS: LACTIC ACID 3.5 mmol/L (0.5-2.0)
[2018-02-07] MEDS ORDERED: ONDANSETRON 4 MG INJ IV (06:00)
[2018-02-07] MEDS ORDERED: BISACODYL (EC) 5 MG TAB PO (06:00)
[2018-02-07] MEDS ORDERED: NACL 0.9% 3 ML SYG IV (06:00)
[2018-02-07] MEDS ORDERED: ALBUTEROL/IPRATROPIUM (NEB) 3 ML AMP HHN (06:00)
[2018-02-07] MEDS: PANTOPRAZOLE (EC) 40 MG TAB PO ×2 (06:00→10:09)
[2018-02-07] MEDS: AL HYDROX/MG HYDROX/SIMETH 30 ML CUP PO ×5 (06:00→22:00)
[2018-02-07 06:38] LABS: ADD MAN DIFF? NO
[2018-02-07 06:47] LABS: BASOPHILS % 0.3 % (0.0-2.0); EOSINOPHILS % 0.1 % (0.0-7.0); HEMATOCRIT 35.5 % (37.0-47.0); HEMOGLOBIN 11.5 g/dl (12.0-16.0); LYMPHOCYTES # 2.2 10^3/ul (0.8-2.9); MEAN CORPUSCULAR HEMOGLOBIN 28.2 pg (29.0-33.0); MEAN CORPUSCULAR HGB CONC 32.4 g/dl (32.0-37.0); MEAN PLATELET VOLUME 9.8 fl (7.4-10.4); MONOCYTE # 0.7 10^3/ul (0.3-0.9); MONOCYTES % 6.7 % (0.0-11.0); NEUTROPHIL # 7.5 10^3/ul (1.6-7.5); NEUTROPHILS % 71.4 % (39.0-77.0); RED BLOOD COUNT 4.08 10^6/ul (4.20-5.40); RED CELL DISTRIBUTION WIDTH 14.4 % (11.5-14.5)
[2018-02-07 06:47] LABS: WHITE BLOOD COUNT 10.5 10^3/ul (4.8-10.8)
[2018-02-07] MEDS: morphine 2 MG INJ IV (06:52)
[2018-02-07 07:00] LABS: PLATELET COUNT 275 10^3/UL (140-415); POSITIVE DIFF @See below
[2018-02-07 07:19] LABS: HEMOGLOBIN A1C 5.5 % (0-5.9)
[2018-02-07 07:25] LABS: ALANINE AMINOTRANSFERASE 20 IU/L (13-69); ALBUMIN 3.2 g/dl (3.3-4.9); ALBUMIN/GLOBULIN RATIO 1.23; ALKALINE PHOSPHATASE 41 IU/L (42-121); ANION GAP 8 (8-16); ASPARTATE AMINO TRANSFERASE 20 IU/L (15-46); BILIRUBIN,INDIRECT 0.1 mg/dl (0-1.1); BILIRUBIN,TOTAL 0.1 mg/dl (0.2-1.3); BLOOD UREA NITROGEN 13 mg/dl (7-20); CARBON DIOXIDE 26 mmol/L (21-31); CHLORIDE 112 mmol/L (97-110); CREATININE 0.73 mg/dl (0.44-1.00); GLUCOSE 93 mg/dl (70-220); POTASSIUM 4.1 mmol/L (3.5-5.1); SODIUM 142 mmol/L (135-144); TOTAL PROTEIN 5.8 g/dl (6.1-8.1)
[2018-02-07] MEDS ORDERED: PERPHENAZINE 4 MG TAB PO (07:30)
[2018-02-07] MEDS: PERPHENAZINE 2 MG TAB PO ×2 (07:43→21:00)
[2018-02-07] MEDS ORDERED: LORAZEPAM 2 MG INJ IV (09:00)
[2018-02-07] MEDS: SOD CHLORIDE 0.45% 1,000 ML IV (10:09)
[2018-02-07] MEDS: LEVOFLOXACIN 500MG/D5W (PMX) 100 ML IVPB (10:09)
[2018-02-07] MEDS: LEVETIRACETAM 500 MG (PMX) 100 ML IVPB (10:18)
[2018-02-07] MEDS: SENNA TAB PO (10:18)
[2018-02-07] MEDS: GABAPENTIN 300 MG CAP PO ×3 (10:18→21:00)
[2018-02-07] MEDS: VITAMIN B COMPLEX/VIT C CAP PO ×2 (10:19→21:00)
[2018-02-07] MEDS: CHOLECALCIFEROL 1,000 UNIT TAB PO (10:19)
[2018-02-07] MEDS: LORAZEPAM 1 MG TAB PO (13:55)
[2018-02-07] MEDS: MAGNESIUM HYDROXIDE 30ML CUP PO (21:00)
[2018-02-08] MEDS: LEVETIRACETAM 500 MG (PMX) 100 ML IVPB ×3 (01:01→20:00)
[2018-02-08] MEDS: AL HYDROX/MG HYDROX/SIMETH 30 ML CUP PO ×6 (02:00→22:32)
[2018-02-08] MEDS: morphine 2 MG INJ IV ×2 (04:12→23:07)
[2018-02-08] MEDS: SOD CHLORIDE 0.45% 1,000 ML IV (06:03)
[2018-02-08 06:59] LABS: ADD MAN DIFF? NO
[2018-02-08 07:01] LABS: BASOPHIL # 0.1 10^3/ul (0.0-0.1); BASOPHILS % 0.9 % (0.0-2.0); EOSINOPHILS # 0.1 10^3/ul (0.0-0.5); EOSINOPHILS % 1.9 % (0.0-7.0); HEMATOCRIT 37.1 % (37.0-47.0); HEMOGLOBIN 11.7 g/dl (12.0-16.0); LYMPHOCYTES # 2.9 10^3/ul (0.8-2.9); LYMPHOCYTES % 41.3 % (15.0-51.0); MEAN CORPUSCULAR HEMOGLOBIN 27.7 pg (29.0-33.0); MEAN CORPUSCULAR HGB CONC 31.5 g/dl (32.0-37.0); MEAN CORPUSCULAR VOLUME 87.9 fl (82.0-101.0); MEAN PLATELET VOLUME 9.5 fl (7.4-10.4); MONOCYTE # 0.6 10^3/ul (0.3-0.9); MONOCYTES % 9.1 % (0.0-11.0); NEUTROPHIL # 3.2 10^3/ul (1.6-7.5); NEUTROPHILS % 46.5 % (39.0-77.0); PLATELET COUNT 230 10^3/UL (140-415); RED BLOOD COUNT 4.22 10^6/ul (4.20-5.40); RED CELL DISTRIBUTION WIDTH 14.4 % (11.5-14.5)
[2018-02-08 07:01] LABS: WHITE BLOOD COUNT 6.9 10^3/ul (4.8-10.8)
[2018-02-08 07:18] LABS: ANION GAP 14 (8-16); BLOOD UREA NITROGEN 11 mg/dl (7-20); CALCIUM 8.9 mg/dl (8.4-10.2); CARBON DIOXIDE 22 mmol/L (21-31); CHLORIDE 110 mmol/L (97-110); CREATININE 0.72 mg/dl (0.44-1.00); GLUCOSE 90 mg/dl (70-220); MAGNESIUM 2.1 mg/dl (1.7-2.5); POTASSIUM 3.6 mmol/L (3.5-5.1); SODIUM 142 mmol/L (135-144)
[2018-02-08] MEDS ORDERED: POTASSIUM CHLORIDE (SR) 20 MEQ TAB PO (09:02)
[2018-02-08] MEDS: IOHEXOL 300MG/ML 150 ML BTL (09:10)
[2018-02-08] MEDS: SOD CHLORIDE 0.9% 100 ML (09:10)
[2018-02-08] MEDS ORDERED: POTASSIUM CHLORIDE 100 ML IVPB (09:30)
[2018-02-08] MEDS: LEVOFLOXACIN 500MG/D5W (PMX) 100 ML IVPB (09:52)
[2018-02-08] MEDS: CHOLECALCIFEROL 1,000 UNIT TAB PO (10:18)
[2018-02-08] MEDS: VITAMIN B COMPLEX/VIT C CAP PO ×2 (10:18→20:01)
[2018-02-08] MEDS: SENNA TAB PO (10:18)
[2018-02-08] MEDS: GABAPENTIN 300 MG CAP PO ×3 (10:18→20:01)
[2018-02-08] MEDS: POTASSIUM CHLORIDE 20 MEQ POWDER FOR ORAL SOLN PO (12:10)
[2018-02-08] MEDS ORDERED: VANCOMYCIN IV PER PHARMACY XX (13:00)
[2018-02-08] MEDS: PERPHENAZINE 4 MG TAB PO ×2 (13:54→20:01)
[2018-02-08] MEDS: VANCOMYCIN 1.5 GM in SOD CHLORIDE 0.9% 250 ML IVPB (15:22)
[2018-02-08] MEDS: MAGNESIUM HYDROXIDE 30ML CUP PO (20:00)
[2018-02-08] MEDS: LORAZEPAM 0.5 MG TAB PO (20:01)
[2018-02-09] MEDS: SOD CHLORIDE 0.45% 1,000 ML IV ×3 (01:30→21:20)
[2018-02-09] MEDS: AL HYDROX/MG HYDROX/SIMETH 30 ML CUP PO ×6 (02:00→21:24)
[2018-02-09] MEDS: PANTOPRAZOLE (EC) 40 MG TAB PO ×2 (06:18→20:41)
[2018-02-09] MEDS: SENNA TAB PO (09:03)
[2018-02-09] MEDS: LEVETIRACETAM 500 MG (PMX) 100 ML IVPB (09:03)
[2018-02-09] MEDS: LEVOFLOXACIN 500MG/D5W (PMX) 100 ML IVPB (09:03)
[2018-02-09] MEDS: GABAPENTIN 300 MG CAP PO ×3 (09:04→20:41)
[2018-02-09] MEDS: CHOLECALCIFEROL 1,000 UNIT TAB PO (09:04)
[2018-02-09] MEDS: VITAMIN B COMPLEX/VIT C CAP PO ×2 (09:04→20:41)
[2018-02-09] MEDS: morphine 2 MG INJ IV (09:13)
[2018-02-09] MEDS: PERPHENAZINE 4 MG TAB PO ×3 (09:28→20:41)
[2018-02-09] MEDS: POTASSIUM CHLORIDE 100 ML IVPB ×2 (09:30→12:41)
[2018-02-09 09:53] LABS: ADD MAN DIFF? NO
[2018-02-09 10:00] LABS: WHITE BLOOD COUNT 8.7 10^3/ul (4.8-10.8)
[2018-02-09 10:00] LABS: BASOPHILS % 0.5 % (0.0-2.0); EOSINOPHILS # 0.1 10^3/ul (0.0-0.5); EOSINOPHILS % 1.3 % (0.0-7.0); HEMATOCRIT 36.2 % (37.0-47.0); HEMOGLOBIN 11.8 g/dl (12.0-16.0); LYMPHOCYTES # 2.6 10^3/ul (0.8-2.9); LYMPHOCYTES % 30.1 % (15.0-51.0); MEAN CORPUSCULAR HEMOGLOBIN 28.2 pg (29.0-33.0); MEAN CORPUSCULAR HGB CONC 32.6 g/dl (32.0-37.0); MEAN CORPUSCULAR VOLUME 86.4 fl (82.0-101.0); MEAN PLATELET VOLUME 9.7 fl (7.4-10.4); MONOCYTE # 0.8 10^3/ul (0.3-0.9); MONOCYTES % 9.1 % (0.0-11.0); NEUTROPHIL # 5.1 10^3/ul (1.6-7.5); NEUTROPHILS % 58.7 % (39.0-77.0); PLATELET COUNT 297 10^3/UL (140-415); RED BLOOD COUNT 4.19 10^6/ul (4.20-5.40); RED CELL DISTRIBUTION WIDTH 14.2 % (11.5-14.5)
[2018-02-09 10:21] LABS: ALBUMIN 3.2 g/dl (3.3-4.9); ANION GAP 12 (8-16); BLOOD UREA NITROGEN 17 mg/dl (7-20); CALCIUM 9.1 mg/dl (8.4-10.2); CARBON DIOXIDE 24 mmol/L (21-31); CHLORIDE 112 mmol/L (97-110); CREATININE 0.69 mg/dl (0.44-1.00); GLUCOSE 132 mg/dl (70-220); MAGNESIUM 2.3 mg/dl (1.7-2.5); PHOSPHORUS 2.9 mg/dl (2.5-4.9); POTASSIUM 4.4 mmol/L (3.5-5.1); SODIUM 144 mmol/L (135-144)
[2018-02-09] MEDS: LORAZEPAM 0.5 MG TAB PO ×2 (10:36→23:42)
[2018-02-09] MEDS: VANCOMYCIN 1.25 GM in SOD CHLORIDE 0.9% 250 ML IVPB (16:58)
[2018-02-09] MEDS: MAGNESIUM HYDROXIDE 30ML CUP PO (20:40)
[2018-02-09] MEDS: QUETIAPINE 25 MG TAB PO (20:40)
[2018-02-10] MEDS: AL HYDROX/MG HYDROX/SIMETH 30 ML CUP PO ×6 (02:45→21:44)
[2018-02-10] MEDS: SENNA TAB PO (08:27)
[2018-02-10] MEDS: CHOLECALCIFEROL 1,000 UNIT TAB PO (08:27)
[2018-02-10] MEDS: LEVOFLOXACIN 500MG/D5W (PMX) 100 ML IVPB (08:27)
[2018-02-10] MEDS: VITAMIN B COMPLEX/VIT C CAP PO ×2 (08:27→20:45)
[2018-02-10] MEDS: PANTOPRAZOLE (EC) 40 MG TAB PO ×2 (08:27→20:45)
[2018-02-10] MEDS: GABAPENTIN 300 MG CAP PO ×3 (08:27→20:45)
[2018-02-10] MEDS: LORAZEPAM 0.5 MG TAB PO (09:25)
[2018-02-10] MEDS: PERPHENAZINE 4 MG TAB PO ×3 (09:25→20:45)
[2018-02-10 10:01] LABS: ADD MAN DIFF? NO
[2018-02-10 10:10] LABS: WHITE BLOOD COUNT 6.7 10^3/ul (4.8-10.8)
[2018-02-10 10:10] LABS: BASOPHIL # 0.1 10^3/ul (0.0-0.1); BASOPHILS % 0.7 % (0.0-2.0); EOSINOPHILS # 0.3 10^3/ul (0.0-0.5); EOSINOPHILS % 4.3 % (0.0-7.0); HEMATOCRIT 36.5 % (37.0-47.0); HEMOGLOBIN 11.3 g/dl (12.0-16.0); LYMPHOCYTES # 2.4 10^3/ul (0.8-2.9); LYMPHOCYTES % 35.1 % (15.0-51.0); MEAN CORPUSCULAR VOLUME 90.6 fl (82.0-101.0); MEAN PLATELET VOLUME 11.4 fl (7.4-10.4); MONOCYTE # 0.4 10^3/ul (0.3-0.9); MONOCYTES % 5.5 % (0.0-11.0); NEUTROPHIL # 3.6 10^3/ul (1.6-7.5); NEUTROPHILS % 54.3 % (39.0-77.0); PLATELET COUNT 102 10^3/UL (140-415); RED BLOOD COUNT 4.03 10^6/ul (4.20-5.40); RED CELL DISTRIBUTION WIDTH 14.4 % (11.5-14.5)
[2018-02-10 10:20] LABS: ALBUMIN 3.2 g/dl (3.3-4.9); ANION GAP 14 (8-16); BLOOD UREA NITROGEN 9 mg/dl (7-20); CALCIUM 8.7 mg/dl (8.4-10.2); CARBON DIOXIDE 20 mmol/L (21-31); CHLORIDE 109 mmol/L (97-110); CREATININE 0.59 mg/dl (0.44-1.00); GLUCOSE 164 mg/dl (70-220); MAGNESIUM 2.1 mg/dl (1.7-2.5); PHOSPHORUS 3.2 mg/dl (2.5-4.9); POTASSIUM 4.3 mmol/L (3.5-5.1); SODIUM 139 mmol/L (135-144)
[2018-02-10] MEDS: QUETIAPINE 25 MG TAB PO ×2 (12:10→20:45)
[2018-02-10] MEDS: VANCOMYCIN 1.25 GM in SOD CHLORIDE 0.9% 250 ML IVPB (16:10)
[2018-02-10] MEDS: SOD CHLORIDE 0.45% 1,000 ML IV (16:17)
[2018-02-10] MEDS: MAGNESIUM HYDROXIDE 30ML CUP PO (20:44)
[2018-02-11] MEDS: AL HYDROX/MG HYDROX/SIMETH 30 ML CUP PO ×6 (02:00→21:20)
[2018-02-11] MEDS: LEVOFLOXACIN 500 MG TAB PO (05:08)
[2018-02-11 07:43] LABS: ADD MAN DIFF? NO
[2018-02-11 08:24] LABS: ANION GAP 11 (8-16); BLOOD UREA NITROGEN 9 mg/dl (7-20); CALCIUM 8.9 mg/dl (8.4-10.2); CARBON DIOXIDE 26 mmol/L (21-31); CHLORIDE 112 mmol/L (97-110); CREATININE 0.68 mg/dl (0.44-1.00); GLUCOSE 83 mg/dl (70-220); MAGNESIUM 2.3 mg/dl (1.7-2.5); PHOSPHORUS 4.3 mg/dl (2.5-4.9); POTASSIUM 4.4 mmol/L (3.5-5.1); SODIUM 145 mmol/L (135-144)
[2018-02-11] MEDS: CHOLECALCIFEROL 1,000 UNIT TAB PO (08:27)
[2018-02-11] MEDS: PANTOPRAZOLE (EC) 40 MG TAB PO ×2 (08:27→20:19)
[2018-02-11] MEDS: PERPHENAZINE 4 MG TAB PO ×3 (08:27→20:20)
[2018-02-11] MEDS: GABAPENTIN 300 MG CAP PO ×3 (08:27→20:19)
[2018-02-11] MEDS: SENNA TAB PO (08:27)
[2018-02-11] MEDS: VITAMIN B COMPLEX/VIT C CAP PO ×2 (08:27→20:19)
[2018-02-11 09:49] LABS: BASOPHIL # 0.1 10^3/ul (0.0-0.1); BASOPHILS % 0.8 % (0.0-2.0); EOSINOPHILS # 0.4 10^3/ul (0.0-0.5); EOSINOPHILS % 6.1 % (0.0-7.0); HEMATOCRIT 34.8 % (37.0-47.0); HEMOGLOBIN 10.9 g/dl (12.0-16.0); LYMPHOCYTES # 2.4 10^3/ul (0.8-2.9); LYMPHOCYTES % 38.7 % (15.0-51.0); MEAN CORPUSCULAR HEMOGLOBIN 28.1 pg (29.0-33.0); MEAN CORPUSCULAR HGB CONC 31.3 g/dl (32.0-37.0); MEAN CORPUSCULAR VOLUME 89.7 fl (82.0-101.0); MEAN PLATELET VOLUME 9.6 fl (7.4-10.4); MONOCYTE # 0.5 10^3/ul (0.3-0.9); MONOCYTES % 7.7 % (0.0-11.0); NEUTROPHIL # 2.9 10^3/ul (1.6-7.5); NEUTROPHILS % 46.4 % (39.0-77.0); PLATELET COUNT 238 10^3/UL (140-415); RED BLOOD COUNT 3.88 10^6/ul (4.20-5.40); RED CELL DISTRIBUTION WIDTH 14.5 % (11.5-14.5)
[2018-02-11 09:49] LABS: WHITE BLOOD COUNT 6.2 10^3/ul (4.8-10.8)
[2018-02-11] MEDS: QUETIAPINE 25 MG TAB PO ×2 (13:59→20:20)
[2018-02-11 15:40] LABS: VANCOMYCIN,TROUGH 12.2 ug/ml (10.0-20.0)
[2018-02-11] MEDS: SOD CHLORIDE 0.45% 1,000 ML IV (16:59)
[2018-02-11] MEDS: VANCOMYCIN 1.25 GM in SOD CHLORIDE 0.9% 250 ML IVPB (16:59)
[2018-02-11] MEDS: MAGNESIUM HYDROXIDE 30ML CUP PO (20:19)
[2018-02-11] MEDS: LORAZEPAM 0.5 MG TAB PO (20:20)
[2018-02-12] MEDS: AL HYDROX/MG HYDROX/SIMETH 30 ML CUP PO ×6 (02:00→22:00)
[2018-02-12] MEDS: SOD CHLORIDE 0.45% 1,000 ML IV ×2 (04:00→16:37)
[2018-02-12] MEDS: LEVOFLOXACIN 500 MG TAB PO (05:11)
[2018-02-12 07:55] LABS: ADD MAN DIFF? NO
[2018-02-12 08:08] LABS: BASOPHILS % 0.6 % (0.0-2.0); EOSINOPHILS # 0.4 10^3/ul (0.0-0.5); EOSINOPHILS % 5.6 % (0.0-7.0); HEMATOCRIT 33.1 % (37.0-47.0); HEMOGLOBIN 10.4 g/dl (12.0-16.0); LYMPHOCYTES # 2.1 10^3/ul (0.8-2.9); LYMPHOCYTES % 33.1 % (15.0-51.0); MEAN CORPUSCULAR HEMOGLOBIN 28.1 pg (29.0-33.0); MEAN CORPUSCULAR HGB CONC 31.4 g/dl (32.0-37.0); MEAN CORPUSCULAR VOLUME 89.5 fl (82.0-101.0); MEAN PLATELET VOLUME 9.3 fl (7.4-10.4); MONOCYTE # 0.6 10^3/ul (0.3-0.9); MONOCYTES % 9.8 % (0.0-11.0); NEUTROPHIL # 3.3 10^3/ul (1.6-7.5); NEUTROPHILS % 50.7 % (39.0-77.0); PLATELET COUNT 259 10^3/UL (140-415); RED CELL DISTRIBUTION WIDTH 14.4 % (11.5-14.5)
[2018-02-12 08:08] LABS: WHITE BLOOD COUNT 6.4 10^3/ul (4.8-10.8)
[2018-02-12 08:30] LABS: ANION GAP 12 (8-16); BLOOD UREA NITROGEN 11 mg/dl (7-20); CALCIUM 8.8 mg/dl (8.4-10.2); CARBON DIOXIDE 33 mmol/L (21-31); CHLORIDE 105 mmol/L (97-110); CREATININE 0.77 mg/dl (0.44-1.00); GLUCOSE 99 mg/dl (70-220); MAGNESIUM 2.6 mg/dl (1.7-2.5); PHOSPHORUS 3.8 mg/dl (2.5-4.9); POTASSIUM 3.9 mmol/L (3.5-5.1); SODIUM 146 mmol/L (135-144)
[2018-02-12] MEDS: VITAMIN B COMPLEX/VIT C CAP PO ×2 (09:56→23:47)
[2018-02-12] MEDS: GABAPENTIN 300 MG CAP PO ×3 (09:56→23:47)
[2018-02-12] MEDS: PERPHENAZINE 4 MG TAB PO ×3 (09:56→23:46)
[2018-02-12] MEDS: PANTOPRAZOLE (EC) 40 MG TAB PO ×2 (09:56→23:47)
[2018-02-12] MEDS: SENNA TAB PO (09:56)
[2018-02-12] MEDS: CHOLECALCIFEROL 1,000 UNIT TAB PO (09:59)
[2018-02-12] MEDS: LORAZEPAM 0.5 MG TAB PO (12:31)
[2018-02-12] MEDS: VANCOMYCIN 1.25 GM in SOD CHLORIDE 0.9% 250 ML IVPB (16:33)
[2018-02-12] MEDS: MAGNESIUM HYDROXIDE 30ML CUP PO (21:00)
[2018-02-12] MEDS: QUETIAPINE 25 MG TAB PO (23:47)
[2018-02-13] MEDS: AL HYDROX/MG HYDROX/SIMETH 30 ML CUP PO ×6 (02:00→21:14)
[2018-02-13 06:11] LABS: ADD MAN DIFF? NO
[2018-02-13 06:17] LABS: WHITE BLOOD COUNT 6.6 10^3/ul (4.8-10.8)
[2018-02-13 06:17] LABS: BASOPHIL # 0.1 10^3/ul (0.0-0.1); BASOPHILS % 0.9 % (0.0-2.0); EOSINOPHILS # 0.4 10^3/ul (0.0-0.5); EOSINOPHILS % 5.3 % (0.0-7.0); HEMATOCRIT 32.6 % (37.0-47.0); HEMOGLOBIN 10.3 g/dl (12.0-16.0); LYMPHOCYTES # 2.7 10^3/ul (0.8-2.9); LYMPHOCYTES % 40.8 % (15.0-51.0); MEAN CORPUSCULAR HEMOGLOBIN 28.2 pg (29.0-33.0); MEAN CORPUSCULAR HGB CONC 31.6 g/dl (32.0-37.0); MEAN CORPUSCULAR VOLUME 89.3 fl (82.0-101.0); MEAN PLATELET VOLUME 10.3 fl (7.4-10.4); MONOCYTE # 0.6 10^3/ul (0.3-0.9); MONOCYTES % 8.4 % (0.0-11.0); NEUTROPHIL # 2.9 10^3/ul (1.6-7.5); NEUTROPHILS % 44.4 % (39.0-77.0); PLATELET COUNT 211 10^3/UL (140-415); RED BLOOD COUNT 3.65 10^6/ul (4.20-5.40); RED CELL DISTRIBUTION WIDTH 14.5 % (11.5-14.5)
[2018-02-13] MEDS: LEVOFLOXACIN 500 MG TAB PO (06:24)
[2018-02-13] MEDS ORDERED: PENDING SANTYL ORDER FOR WOUND CARE XX (06:30)
[2018-02-13 06:44] LABS: ANION GAP 10 (8-16); BLOOD UREA NITROGEN 12 mg/dl (7-20); CALCIUM 8.7 mg/dl (8.4-10.2); CARBON DIOXIDE 29 mmol/L (21-31); CHLORIDE 111 mmol/L (97-110); GLUCOSE 94 mg/dl (70-220); MAGNESIUM 2.6 mg/dl (1.7-2.5); PHOSPHORUS 4.3 mg/dl (2.5-4.9); SODIUM 146 mmol/L (135-144)
[2018-02-13] MEDS: PANTOPRAZOLE (EC) 40 MG TAB PO ×2 (09:08→21:10)
[2018-02-13] MEDS: SENNA TAB PO (09:08)
[2018-02-13] MEDS: VITAMIN B COMPLEX/VIT C CAP PO ×2 (09:09→21:10)
[2018-02-13] MEDS: CHOLECALCIFEROL 1,000 UNIT TAB PO (09:09)
[2018-02-13] MEDS: PERPHENAZINE 4 MG TAB PO ×3 (09:09→21:10)
[2018-02-13] MEDS: GABAPENTIN 300 MG CAP PO ×3 (09:09→21:10)
[2018-02-13] MEDS: VANCOMYCIN 1.25 GM in SOD CHLORIDE 0.9% 250 ML IVPB (16:29)
[2018-02-13] MEDS: QUETIAPINE 25 MG TAB PO (21:10)
[2018-02-13] MEDS: MAGNESIUM HYDROXIDE 30ML CUP PO (21:10)
[2018-02-13] MEDS: SOD CHLORIDE 0.45% 1,000 ML IV (23:41)
[2018-02-14] MEDS: AL HYDROX/MG HYDROX/SIMETH 30 ML CUP PO ×6 (01:33→21:32)
[2018-02-14] MEDS: LEVOFLOXACIN 500 MG TAB PO (05:48)
[2018-02-14 06:16] LABS: ADD MAN DIFF? NO
[2018-02-14 06:19] LABS: WHITE BLOOD COUNT 6.7 10^3/ul (4.8-10.8)
[2018-02-14 06:19] LABS: BASOPHILS % 0.6 % (0.0-2.0); EOSINOPHILS # 0.4 10^3/ul (0.0-0.5); EOSINOPHILS % 5.3 % (0.0-7.0); HEMATOCRIT 34.6 % (37.0-47.0); HEMOGLOBIN 10.7 g/dl (12.0-16.0); LYMPHOCYTES # 2.7 10^3/ul (0.8-2.9); LYMPHOCYTES % 40.2 % (15.0-51.0); MEAN CORPUSCULAR HEMOGLOBIN 27.6 pg (29.0-33.0); MEAN CORPUSCULAR HGB CONC 30.9 g/dl (32.0-37.0); MEAN CORPUSCULAR VOLUME 89.2 fl (82.0-101.0); MONOCYTE # 0.7 10^3/ul (0.3-0.9); MONOCYTES % 9.6 % (0.0-11.0); NEUTROPHILS % 44.2 % (39.0-77.0); PLATELET COUNT 258 10^3/UL (140-415); RED BLOOD COUNT 3.88 10^6/ul (4.20-5.40); RED CELL DISTRIBUTION WIDTH 14.6 % (11.5-14.5)
[2018-02-14 06:46] LABS: ANION GAP 10 (8-16); BLOOD UREA NITROGEN 14 mg/dl (7-20); CALCIUM 9.1 mg/dl (8.4-10.2); CARBON DIOXIDE 30 mmol/L (21-31); CHLORIDE 110 mmol/L (97-110); CREATININE 0.77 mg/dl (0.44-1.00); GLUCOSE 89 mg/dl (70-220); MAGNESIUM 2.5 mg/dl (1.7-2.5); POTASSIUM 3.9 mmol/L (3.5-5.1); SODIUM 146 mmol/L (135-144)
[2018-02-14] MEDS: SENNA TAB PO (08:44)
[2018-02-14] MEDS: PERPHENAZINE 4 MG TAB PO ×3 (08:44→21:11)
[2018-02-14] MEDS: VITAMIN B COMPLEX/VIT C CAP PO ×2 (08:44→21:12)
[2018-02-14] MEDS: PANTOPRAZOLE (EC) 40 MG TAB PO ×2 (08:44→21:11)
[2018-02-14] MEDS: CHOLECALCIFEROL 1,000 UNIT TAB PO (08:44)
[2018-02-14] MEDS: GABAPENTIN 300 MG CAP PO ×3 (08:44→21:15)
[2018-02-14] MEDS: ACETAMINOPHEN 325 MG TAB PO (09:32)
[2018-02-14] MEDS: QUETIAPINE 25 MG TAB PO ×2 (10:46→21:12)
[2018-02-14] MEDS: morphine LIQ (10 MG/5 ML) CUP PO ×2 (12:06→16:57)
[2018-02-14] MEDS: VANCOMYCIN 1.25 GM in SOD CHLORIDE 0.9% 250 ML IVPB (16:20)
[2018-02-14] MEDS: MAGNESIUM HYDROXIDE 30ML CUP PO (21:00)
[2018-02-14] MEDS: SOD CHLORIDE 0.45% 1,000 ML IV (21:19)
[2018-02-15] MEDS: AL HYDROX/MG HYDROX/SIMETH 30 ML CUP PO ×7 (02:00→20:43)
[2018-02-15] MEDS: PANTOPRAZOLE (EC) 40 MG TAB PO ×2 (09:23→20:42)
[2018-02-15] MEDS: GABAPENTIN 300 MG CAP PO ×3 (09:23→20:42)
[2018-02-15] MEDS: VITAMIN B COMPLEX/VIT C CAP PO ×2 (09:23→20:43)
[2018-02-15] MEDS: PERPHENAZINE 4 MG TAB PO ×3 (09:23→20:43)
[2018-02-15] MEDS: SENNA TAB PO (09:23)
[2018-02-15] MEDS: CHOLECALCIFEROL 1,000 UNIT TAB PO (09:23)
[2018-02-15] MEDS: ACETAMINOPHEN 325 MG TAB PO (13:58)
[2018-02-15] MEDS: BALSAM PERU/CASTOR OIL 60 GM TUBE TOP ×2 (15:29→20:44)
[2018-02-15] MEDS: morphine LIQ (10 MG/5 ML) CUP PO (16:27)
[2018-02-15] MEDS: VANCOMYCIN 1.25 GM in SOD CHLORIDE 0.9% 250 ML IVPB (16:38)
[2018-02-15] MEDS: SOD CHLORIDE 0.45% 1,000 ML IV (17:30)
[2018-02-15] MEDS: MAGNESIUM HYDROXIDE 30ML CUP PO (20:43)
[2018-02-15] MEDS: QUETIAPINE 25 MG TAB PO (20:43)
[2018-02-16] MEDS: AL HYDROX/MG HYDROX/SIMETH 30 ML CUP PO ×6 (02:00→21:27)
[2018-02-16] MEDS: SOD CHLORIDE 0.45% 1,000 ML IV (03:37)
[2018-02-16 07:01] LABS: ADD MAN DIFF? NO; BASOPHIL # 0.1 10^3/ul (0.0-0.1); BASOPHILS % 0.7 % (0.0-2.0); EOSINOPHILS # 0.3 10^3/ul (0.0-0.5); EOSINOPHILS % 4.6 % (0.0-7.0); HEMOGLOBIN 9.9 g/dl (12.0-16.0); LYMPHOCYTES # 2.8 10^3/ul (0.8-2.9); LYMPHOCYTES % 39.9 % (15.0-51.0); MEAN CORPUSCULAR HGB CONC 31.9 g/dl (32.0-37.0); MEAN CORPUSCULAR VOLUME 87.8 fl (82.0-101.0); MEAN PLATELET VOLUME 9.8 fl (7.4-10.4); MONOCYTE # 0.6 10^3/ul (0.3-0.9); MONOCYTES % 8.4 % (0.0-11.0); NEUTROPHIL # 3.3 10^3/ul (1.6-7.5); NEUTROPHILS % 46.3 % (39.0-77.0); PLATELET COUNT 259 10^3/UL (140-415); RED BLOOD COUNT 3.53 10^6/ul (4.20-5.40); RED CELL DISTRIBUTION WIDTH 14.2 % (11.5-14.5)
[2018-02-16 07:40] LABS: ANION GAP 10 (8-16); BLOOD UREA NITROGEN 13 mg/dl (7-20); CALCIUM 9.3 mg/dl (8.4-10.2); CARBON DIOXIDE 28 mmol/L (21-31); CHLORIDE 111 mmol/L (97-110); CREATININE 0.74 mg/dl (0.44-1.00); GLUCOSE 102 mg/dl (70-220); MAGNESIUM 2.2 mg/dl (1.7-2.5); PHOSPHORUS 4.3 mg/dl (2.5-4.9); SODIUM 145 mmol/L (135-144)
[2018-02-16] MEDS: PANTOPRAZOLE (EC) 40 MG TAB PO ×2 (09:41→21:26)
[2018-02-16] MEDS: CHOLECALCIFEROL 1,000 UNIT TAB PO (09:41)
[2018-02-16] MEDS: GABAPENTIN 300 MG CAP PO ×3 (09:41→21:26)
[2018-02-16] MEDS: PERPHENAZINE 4 MG TAB PO ×3 (09:41→21:26)
[2018-02-16] MEDS: BALSAM PERU/CASTOR OIL 60 GM TUBE TOP ×2 (09:41→21:27)
[2018-02-16] MEDS: SENNA TAB PO (09:41)
[2018-02-16] MEDS: VITAMIN B COMPLEX/VIT C CAP PO ×2 (09:41→21:26)
[2018-02-16] MEDS: ACETAMINOPHEN 325 MG TAB PO (11:24)
[2018-02-16] MEDS: VANCOMYCIN 1.25 GM in SOD CHLORIDE 0.9% 250 ML IVPB (16:32)
[2018-02-16] MEDS: MAGNESIUM HYDROXIDE 30ML CUP PO (21:00)
[2018-02-16] MEDS: QUETIAPINE 25 MG TAB PO (21:26)
[2018-02-17] MEDS: LORAZEPAM 0.5 MG TAB PO (00:32)
[2018-02-17] MEDS: AL HYDROX/MG HYDROX/SIMETH 30 ML CUP PO ×3 (02:00→10:11)
[2018-02-17 06:15] LABS: ADD MAN DIFF? NO
[2018-02-17 06:26] LABS: BASOPHILS % 0.4 % (0.0-2.0); EOSINOPHILS # 0.2 10^3/ul (0.0-0.5); EOSINOPHILS % 2.5 % (0.0-7.0); HEMATOCRIT 30.9 % (37.0-47.0); HEMOGLOBIN 9.9 g/dl (12.0-16.0); LYMPHOCYTES % 38.7 % (15.0-51.0); MEAN CORPUSCULAR HEMOGLOBIN 28.2 pg (29.0-33.0); MEAN PLATELET VOLUME 10.1 fl (7.4-10.4); MONOCYTE # 0.8 10^3/ul (0.3-0.9); MONOCYTES % 10.2 % (0.0-11.0); NEUTROPHIL # 3.7 10^3/ul (1.6-7.5); NEUTROPHILS % 48.1 % (39.0-77.0); PLATELET COUNT 246 10^3/UL (140-415); RED BLOOD COUNT 3.51 10^6/ul (4.20-5.40); RED CELL DISTRIBUTION WIDTH 14.2 % (11.5-14.5)
[2018-02-17 06:26] LABS: WHITE BLOOD COUNT 7.6 10^3/ul (4.8-10.8)
[2018-02-17 06:49] LABS: ANION GAP 9 (8-16); BLOOD UREA NITROGEN 12 mg/dl (7-20); CALCIUM 9.1 mg/dl (8.4-10.2); CARBON DIOXIDE 29 mmol/L (21-31); CHLORIDE 111 mmol/L (97-110); CREATININE 0.73 mg/dl (0.44-1.00); GLUCOSE 108 mg/dl (70-220); MAGNESIUM 2.2 mg/dl (1.7-2.5); PHOSPHORUS 4.4 mg/dl (2.5-4.9); POTASSIUM 3.8 mmol/L (3.5-5.1); SODIUM 145 mmol/L (135-144)
[2018-02-17] MEDS: SOD CHLORIDE 0.45% 1,000 ML IV (09:30)
[2018-02-17] MEDS: CHOLECALCIFEROL 1,000 UNIT TAB PO (10:10)
[2018-02-17] MEDS: GABAPENTIN 300 MG CAP PO ×3 (10:10→20:59)
[2018-02-17] MEDS: VITAMIN B COMPLEX/VIT C CAP PO ×2 (10:10→20:58)
[2018-02-17] MEDS: PANTOPRAZOLE (EC) 40 MG TAB PO ×2 (10:10→20:59)
[2018-02-17] MEDS: SENNA TAB PO (10:10)
[2018-02-17] MEDS: BALSAM PERU/CASTOR OIL 60 GM TUBE TOP ×2 (10:10→20:58)
[2018-02-17] MEDS: PERPHENAZINE 4 MG TAB PO ×3 (10:10→20:59)
[2018-02-17] MEDS: VANCOMYCIN 1.25 GM in SOD CHLORIDE 0.9% 250 ML IVPB (15:39)
[2018-02-17] MEDS: QUETIAPINE 25 MG TAB PO (20:58)
[2018-02-17] MEDS: MAGNESIUM HYDROXIDE 30ML CUP PO (21:00)
[2018-02-18 07:12] LABS: ADD MAN DIFF? NO
[2018-02-18 07:15] LABS: WHITE BLOOD COUNT 7.6 10^3/ul (4.8-10.8)
[2018-02-18 07:15] LABS: BASOPHILS % 0.5 % (0.0-2.0); EOSINOPHILS # 0.4 10^3/ul (0.0-0.5); EOSINOPHILS % 5.5 % (0.0-7.0); HEMATOCRIT 34.2 % (37.0-47.0); HEMOGLOBIN 10.5 g/dl (12.0-16.0); LYMPHOCYTES # 2.7 10^3/ul (0.8-2.9); MEAN CORPUSCULAR HEMOGLOBIN 27.7 pg (29.0-33.0); MEAN CORPUSCULAR HGB CONC 30.7 g/dl (32.0-37.0); MEAN CORPUSCULAR VOLUME 90.2 fl (82.0-101.0); MONOCYTE # 0.8 10^3/ul (0.3-0.9); MONOCYTES % 10.2 % (0.0-11.0); NEUTROPHIL # 3.7 10^3/ul (1.6-7.5); NEUTROPHILS % 48.5 % (39.0-77.0); PLATELET COUNT 178 10^3/UL (140-415); RED BLOOD COUNT 3.79 10^6/ul (4.20-5.40); RED CELL DISTRIBUTION WIDTH 14.6 % (11.5-14.5)
[2018-02-18 07:57] LABS: ANION GAP 9 (8-16); BLOOD UREA NITROGEN 14 mg/dl (7-20); CALCIUM 8.9 mg/dl (8.4-10.2); CARBON DIOXIDE 26 mmol/L (21-31); CHLORIDE 113 mmol/L (97-110); CREATININE 0.73 mg/dl (0.44-1.00); GLUCOSE 89 mg/dl (70-220); MAGNESIUM 2.1 mg/dl (1.7-2.5); PHOSPHORUS 4.5 mg/dl (2.5-4.9); SODIUM 144 mmol/L (135-144)
[2018-02-18] MEDS: VITAMIN B COMPLEX/VIT C CAP PO ×2 (10:52→21:04)
[2018-02-18] MEDS: AL HYDROX/MG HYDROX/SIMETH 30 ML CUP PO (10:52)
[2018-02-18] MEDS: PANTOPRAZOLE (EC) 40 MG TAB PO ×2 (10:53→21:04)
[2018-02-18] MEDS: SENNA TAB PO (10:53)
[2018-02-18] MEDS: BALSAM PERU/CASTOR OIL 60 GM TUBE TOP ×2 (10:53→21:03)
[2018-02-18] MEDS: GABAPENTIN 300 MG CAP PO ×3 (10:53→21:04)
[2018-02-18] MEDS: CHOLECALCIFEROL 1,000 UNIT TAB PO (10:53)
[2018-02-18] MEDS: PERPHENAZINE 4 MG TAB PO ×3 (10:53→21:04)
[2018-02-18] MEDS: VANCOMYCIN 1.25 GM in SOD CHLORIDE 0.9% 250 ML IVPB (18:07)
[2018-02-18] MEDS: MAGNESIUM HYDROXIDE 30ML CUP PO (21:00)
[2018-02-18] MEDS: QUETIAPINE 25 MG TAB PO (21:04)
[2018-02-18] MEDS: LORAZEPAM 0.5 MG TAB PO (21:25)
[2018-02-19] MEDS: PERPHENAZINE 4 MG TAB PO ×2 (08:39→13:00)
[2018-02-19] MEDS: AL HYDROX/MG HYDROX/SIMETH 30 ML CUP PO (08:39)
[2018-02-19] MEDS: CHOLECALCIFEROL 1,000 UNIT TAB PO (08:39)
[2018-02-19] MEDS: VITAMIN B COMPLEX/VIT C CAP PO (08:39)
[2018-02-19] MEDS: SENNA TAB PO (08:39)
[2018-02-19] MEDS: PANTOPRAZOLE (EC) 40 MG TAB PO (08:40)
[2018-02-19] MEDS: GABAPENTIN 300 MG CAP PO ×2 (08:40→13:00)
[2018-02-19] MEDS: BALSAM PERU/CASTOR OIL 60 GM TUBE TOP (08:41)
== END 2018-02-19 13:00 | DRG 602 ==
LOC: PP2 02-12 17:30 → E/R 23:53 → MS4 02-07 07:58
DX: L03.114 Cellulitis of left upper limb (principal); G93.40 Encephalopathy, unspecified; E87.2 Acidosis; F05 Delirium due to known physiological condition; R78.81 Bacteremia; B95.8 Unspecified staphylococcus as the cause of diseases classified elsewhere; E87.6 Hypokalemia; F03.90 Unspecified dementia, unspecified severity, without behavioral disturbance, psychotic disturbance, mood disturbance, and anxiety; J01.90 Acute sinusitis, unspecified; E66.9 Obesity, unspecified; Z68.33 Body mass index [BMI] 33.0-33.9, adult; Z87.11 Personal history of peptic ulcer disease
CPT/HCPCS: 70450; 70551; 71045; 71260; 80048; 80053; 80069; 80202; 81001; 81003; 82962; 83036; 83605; 83735; 84100; 84443; 84484; 85025; 85610; 85730; 87040; 87081; 87086; 92610; 93005; 93306; 95819; 96365; 96366; 96368; 96375; 96376; 97162; 97530; 99291-25

== ENCOUNTER 2018-09-04 06:04 | Inpatient (IN) | payer MEDICARE, OTHER ==
[2018-09-04 06:57] LABS: ADD MAN DIFF? NO
[2018-09-04 07:01] LABS: WHITE BLOOD COUNT 10.7 10^3/ul (4.8-10.8)
[2018-09-04 07:01] LABS: BASOPHIL # 0.1 10^3/ul (0.0-0.1); BASOPHILS % 0.5 % (0.0-2.0); EOSINOPHILS % 0.2 % (0.0-7.0); HEMATOCRIT 40.5 % (37.0-47.0); HEMOGLOBIN 12.4 g/dl (12.0-16.0); LYMPHOCYTES # 2.1 10^3/ul (0.8-2.9); LYMPHOCYTES % 19.1 % (15.0-51.0); MEAN CORPUSCULAR HEMOGLOBIN 26.5 pg (29.0-33.0); MEAN CORPUSCULAR HGB CONC 30.6 g/dl (32.0-37.0); MEAN CORPUSCULAR VOLUME 86.5 fl (82.0-101.0); MEAN PLATELET VOLUME 9.3 fl (7.4-10.4); MONOCYTE # 0.6 10^3/ul (0.3-0.9); NEUTROPHIL # 7.7 10^3/ul (1.6-7.5); NEUTROPHILS % 72.2 % (39.0-77.0); PLATELET COUNT 258 10^3/UL (140-415); RED BLOOD COUNT 4.68 10^6/ul (4.20-5.40); RED CELL DISTRIBUTION WIDTH 15.5 % (11.5-14.5)
[2018-09-04 07:22] LABS: INR 0.92; PARTIAL THROMBOPLASTIN TIME 25.7 Sec (23.0-35.0); PROTIME 12.4 Sec (11.9-14.9)
[2018-09-04 07:31] LABS: ALANINE AMINOTRANSFERASE 19 IU/L (13-69); ALBUMIN 4.1 g/dl (3.3-4.9); ALBUMIN/GLOBULIN RATIO 1.41; ALKALINE PHOSPHATASE 60 IU/L (42-121); ANION GAP 12 (5-13); ASPARTATE AMINO TRANSFERASE 26 IU/L (15-46); BILIRUBIN,INDIRECT 0.2 mg/dl (0-1.1); BILIRUBIN,TOTAL 0.2 mg/dl (0.2-1.3); BLOOD UREA NITROGEN 14 mg/dl (7-20); CALCIUM 9.2 mg/dl (8.4-10.2); CARBON DIOXIDE 26 mmol/L (21-31); CHLORIDE 103 mmol/L (97-110); CREATININE 0.71 mg/dl (0.44-1.00); GLUCOSE 200 mg/dl (70-220); POTASSIUM 3.9 mmol/L (3.5-5.1); SODIUM 141 mmol/L (135-144)
[2018-09-04 07:42] LABS: TROPONIN-I < 0.012 ng/ml (0.000-0.120)
[2018-09-04] MEDS: CEFEPIME 2GM/50 ML (PMX) 50 ML IVPB (07:44)
[2018-09-04] MEDS: SODIUM CHLORIDE 0.9% 1L BAG IV* (07:45)
[2018-09-04] MEDS: ACETAMINOPHEN 650 MG SUPP PR (07:46)
[2018-09-04] MEDS: VANCOMYCIN 1 GM (PMX) 250 ML IVPB (07:59)
[2018-09-04 09:03] LABS: LACTIC ACID 1.5 mmol/L (0.5-2.0)
[2018-09-04] MEDS ORDERED: LORAZEPAM 2 MG INJ (09:20)
[2018-09-04] MEDS: LORAZEPAM 2 MG INJ IV ×2 (09:25→23:02)
[2018-09-04] MEDS: LEVETIRACETAM 1000 MG (PMX) 100 ML IVPB ×2 (09:30→23:06)
[2018-09-04 11:08] LABS: ADD UMIC YES; UR ASCORBIC ACID 40 mg/dL (NEGATIVE); UR BILIRUBIN (Dip) NEGATIVE (NEGATIVE); UR BLOOD (Dip) NEGATIVE (NEGATIVE); UR CLARITY CLEAR (CLEAR); UR COLOR YELLOW (YELLOW); UR GLUCOSE (Dip) 1+ mg/dL (NEGATIVE); UR KETONES (Dip) NEGATIVE (NEGATIVE); UR LEUKOCYTE ESTERASE (Dip) NEGATIVE Leu/ul (NEGATIVE); UR NITRITE (Dip) NEGATIVE (NEGATIVE); UR RBC 1 /HPF (0-5); UR SPECIFIC GRAVITY (Dip) 1.019 (1.003-1.030); UR TOTAL PROTEIN (Dip) 1+ mg/dl (NEGATIVE); UR UROBILINOGEN (Dip) NEGATIVE (NEGATIVE); UR WBC 1 /HPF (0-5)
[2018-09-04] MEDS ORDERED: SOD CHLORIDE 0.9% 1,000 ML IV (11:47)
[2018-09-04] MEDS ORDERED: ACETAMINOPHEN 325 MG TAB PO ×2 (12:00→13:00)
[2018-09-04] MEDS ORDERED: ONDANSETRON 4 MG INJ IV ×2 (12:00→13:00)
[2018-09-04] MEDS ORDERED: ZOLPIDEM 5 MG TAB PO (13:00)
[2018-09-04] MEDS ORDERED: DOCUSATE SODIUM 100 MG CAP PO (13:00)
[2018-09-04] MEDS ORDERED: HYDROCODONE/APAP (5/325) TAB PO (13:00)
[2018-09-04] MEDS ORDERED: NACL 0.9% 3 ML SYG IV (13:00)
[2018-09-04] MEDS ORDERED: morphine 2 MG INJ IV (13:00)
[2018-09-04 13:03] LABS: LACTIC ACID 2.8 mmol/L (0.5-2.0)
[2018-09-04] MEDS: D5W-0.45 NACL + KCL 20 MEQ 1,000 ML IV (16:09)
[2018-09-04] MEDS: MAGNESIUM SULFATE 2 GM/50 ML 50 ML IVPB (18:36)
[2018-09-05] MEDS: LORAZEPAM 2 MG INJ IV (02:53)
[2018-09-05 02:56] LABS: ANION GAP 8 (5-13); BLOOD UREA NITROGEN 11 mg/dl (7-20); CALCIUM 8.6 mg/dl (8.4-10.2); CARBON DIOXIDE 28 mmol/L (21-31); CHLORIDE 103 mmol/L (97-110); CREATININE 0.62 mg/dl (0.44-1.00); GLUCOSE 184 mg/dl (70-220); MAGNESIUM 2.8 mg/dl (1.7-2.5); POTASSIUM 4.1 mmol/L (3.5-5.1); SODIUM 139 mmol/L (135-144)
[2018-09-05] MEDS: D5W-0.45 NACL + KCL 20 MEQ 1,000 ML IV ×2 (03:15→09:44)
[2018-09-05 06:19] LABS: ADD MAN DIFF? NO
[2018-09-05 06:37] LABS: WHITE BLOOD COUNT 9.6 10^3/ul (4.8-10.8)
[2018-09-05 06:37] LABS: BASOPHILS % 0.2 % (0.0-2.0); HEMATOCRIT 33.9 % (37.0-47.0); HEMOGLOBIN 10.5 g/dl (12.0-16.0); LYMPHOCYTES # 1.6 10^3/ul (0.8-2.9); LYMPHOCYTES % 17.1 % (15.0-51.0); MEAN CORPUSCULAR HEMOGLOBIN 26.8 pg (29.0-33.0); MEAN CORPUSCULAR VOLUME 86.5 fl (82.0-101.0); MEAN PLATELET VOLUME 9.7 fl (7.4-10.4); MONOCYTE # 0.8 10^3/ul (0.3-0.9); MONOCYTES % 8.6 % (0.0-11.0); NEUTROPHILS % 73.6 % (39.0-77.0); PLATELET COUNT 236 10^3/UL (140-415); RED BLOOD COUNT 3.92 10^6/ul (4.20-5.40); RED CELL DISTRIBUTION WIDTH 15.7 % (11.5-14.5)
[2018-09-05 06:51] LABS: ANION GAP 6 (5-13); BLOOD UREA NITROGEN 11 mg/dl (7-20); CALCIUM 8.5 mg/dl (8.4-10.2); CARBON DIOXIDE 27 mmol/L (21-31); CHLORIDE 103 mmol/L (97-110); CREATININE 0.58 mg/dl (0.44-1.00); GLUCOSE 167 mg/dl (70-220); MAGNESIUM 2.7 mg/dl (1.7-2.5); PHOSPHORUS 2.2 mg/dl (2.5-4.9); POTASSIUM 3.8 mmol/L (3.5-5.1); SODIUM 136 mmol/L (135-144)
[2018-09-05] MEDS: ENOXAPARIN 40 MG/0.4 ML SYG SC (08:20)
[2018-09-05] MEDS: LEVETIRACETAM 1000 MG (PMX) 100 ML IVPB (09:44)
[2018-09-05] MEDS: OXCARBAZEPINE 300 MG TAB PO (12:00)
[2018-09-05] MEDS: CEFTRIAXONE 1 GM/50 ML (PMX) 50 ML IVPB (12:09)
[2018-09-05] MEDS: VALPROATE INJ 1,500 MG in SOD CHLORIDE 0.9% 100 ML IVPB (23:41)
[2018-09-06] MEDS: VALPROATE INJ 500 MG in SOD CHLORIDE 0.9% 50 ML IVPB ×3 (05:01→23:53)
[2018-09-06] MEDS: D5W-0.45 NACL + KCL 20 MEQ 1,000 ML IV (05:28)
[2018-09-06 05:39] LABS: ADD MAN DIFF? NO
[2018-09-06 05:44] LABS: BASOPHILS % 0.2 % (0.0-2.0); EOSINOPHILS % 0.1 % (0.0-7.0); HEMATOCRIT 34.8 % (37.0-47.0); HEMOGLOBIN 10.7 g/dl (12.0-16.0); LYMPHOCYTES # 2.1 10^3/ul (0.8-2.9); LYMPHOCYTES % 21.5 % (15.0-51.0); MEAN CORPUSCULAR HEMOGLOBIN 26.8 pg (29.0-33.0); MEAN CORPUSCULAR HGB CONC 30.7 g/dl (32.0-37.0); MEAN PLATELET VOLUME 9.2 fl (7.4-10.4); MONOCYTES % 10.1 % (0.0-11.0); NEUTROPHIL # 6.4 10^3/ul (1.6-7.5); NEUTROPHILS % 67.7 % (39.0-77.0); PLATELET COUNT 203 10^3/UL (140-415); RED CELL DISTRIBUTION WIDTH 15.3 % (11.5-14.5)
[2018-09-06 05:44] LABS: WHITE BLOOD COUNT 9.5 10^3/ul (4.8-10.8)
[2018-09-06 06:25] LABS: ANION GAP 7 (5-13); BLOOD UREA NITROGEN 11 mg/dl (7-20); CALCIUM 8.5 mg/dl (8.4-10.2); CARBON DIOXIDE 27 mmol/L (21-31); CHLORIDE 104 mmol/L (97-110); CREATININE 0.56 mg/dl (0.44-1.00); GLUCOSE 141 mg/dl (70-220); PHOSPHORUS 1.7 mg/dl (2.5-4.9); POTASSIUM 3.7 mmol/L (3.5-5.1); SODIUM 138 mmol/L (135-144)
[2018-09-06] MEDS: ENOXAPARIN 40 MG/0.4 ML SYG SC (08:20)
[2018-09-06 09:21] LABS: VALPROATE 89 ug/ml (50-100)
[2018-09-06] MEDS: CEFTRIAXONE 1 GM/50 ML (PMX) 50 ML IVPB (10:36)
[2018-09-06] MEDS: FUROSEMIDE 20 MG INJ IV (12:06)
[2018-09-06] MEDS: ALBUTEROL 0.083% (NEB) 2.5 MG/3 ML AMP HHN ×3 (12:57→20:10)
[2018-09-06] MEDS: FUROSEMIDE 40 MG INJ IV (17:02)
[2018-09-06 18:09] LABS: AADO2 Arterial 50.9 mmHg (7.0-24.0); Allen Test ACCEPTAB; Arterial Base Excess 7.5 mmol/L (-3.0-3); Arterial COHb 0.4 % (0.0-3.0); Arterial Fraction of Oxyhgb 97.3 % (93.0-99.0); Arterial HCO3 30.8 mmol/L (22.0-26.0); Arterial MetHb 0.3 % (0.0-1.5); Arterial pCO2 38.5 mmhg (35-45); MODE NASAL CANNULA; Site Left Radial
[2018-09-06] MEDS: LORAZEPAM 2 MG INJ IV (20:37)
[2018-09-07] MEDS: ALBUTEROL 0.083% (NEB) 2.5 MG/3 ML AMP HHN ×6 (00:59→20:01)
[2018-09-07 05:43] LABS: AADO2 Arterial 77.2 mmHg (7.0-24.0); Allen Test ACCEPTAB; Arterial Base Excess 7.6 mmol/L (-3.0-3); Arterial Blood Gas Oxygen Sat 97.3 mmHG (95.0-100.0); Arterial COHb 0.5 % (0.0-3.0); Arterial Fraction of Oxyhgb 96.5 % (93.0-99.0); Arterial HCO3 31.3 mmol/L (22.0-26.0); Arterial MetHb 0.3 % (0.0-1.5); Arterial pCO2 40.4 mmhg (35-45); Blood Gas PS 5; MODE BIPAP - S/T; Site Right Radial
[2018-09-07] MEDS: FUROSEMIDE 40 MG INJ IV (06:13)
[2018-09-07] MEDS: VALPROATE INJ 500 MG in SOD CHLORIDE 0.9% 50 ML IVPB ×3 (07:15→22:07)
[2018-09-07] MEDS: ENOXAPARIN 40 MG/0.4 ML SYG SC (08:21)
[2018-09-07] MEDS: CEFTRIAXONE 1 GM/50 ML (PMX) 50 ML IVPB (11:09)
[2018-09-07 13:20] LABS: ANION GAP 7 (5-13); BLOOD UREA NITROGEN 19 mg/dl (7-20); CALCIUM 8.7 mg/dl (8.4-10.2); CARBON DIOXIDE 35 mmol/L (21-31); CHLORIDE 96 mmol/L (97-110); CREATININE 0.56 mg/dl (0.44-1.00); GLUCOSE 104 mg/dl (70-220); POTASSIUM 3.1 mmol/L (3.5-5.1); SODIUM 138 mmol/L (135-144)
[2018-09-07] MEDS: POTASSIUM CHLORIDE 100 ML IVPB ×3 (15:31→19:57)
[2018-09-08] MEDS: ALBUTEROL 0.083% (NEB) 2.5 MG/3 ML AMP HHN ×3 (01:23→08:51)
[2018-09-08] MEDS: VALPROATE INJ 500 MG in SOD CHLORIDE 0.9% 50 ML IVPB (06:52)
[2018-09-08 09:02] LABS: VALPROATE 128 ug/ml (50-100)
[2018-09-08] MEDS: FUROSEMIDE 20 MG INJ IV (09:44)
[2018-09-08] MEDS: ENOXAPARIN 40 MG/0.4 ML SYG SC (09:49)
== END 2018-09-08 11:20 | disposition home or self-care (01) | DRG 100 ==
LOC: E/R 06:04 → 6WM 11:48
DX: G40.901 Epilepsy, unspecified, not intractable, with status epilepticus (principal); I50.33 Acute on chronic diastolic (congestive) heart failure; I47.2 Ventricular tachycardia; R13.10 Dysphagia, unspecified; R50.9 Fever, unspecified; F03.90 Unspecified dementia, unspecified severity, without behavioral disturbance, psychotic disturbance, mood disturbance, and anxiety; F41.9 Anxiety disorder, unspecified; F32.9 Major depressive disorder, single episode, unspecified; E78.5 Hyperlipidemia, unspecified; Z90.5 Acquired absence of kidney; Z87.11 Personal history of peptic ulcer disease
CPT/HCPCS: 36415; 36600; 70450; 70553; 71045; 80048; 80053; 80164; 81001; 82803; 83605; 83735; 84100; 84484; 85025; 85610; 85730; 87040; 87086; 92526; 92610; 93005; 93306; 94640; 94660; 95819; 96374; 96375; 99285-25